=== PATIENT | female | born 1965 | race African-American/Black ===

== ENCOUNTER 2022-11-26 14:04 | Outpatient (CLI) | payer OTHER, SELFPAY ==
--- NOTE | ~2022-11-26 | XR_ITS ---
EXAMINATION: XR thoracic spine 3V DATE: 11/26/2022 14:20 INDICATION: Thoracic back pain TECHNIQUE: AP, lateral and lateral swimmer's views of the thoracic spine were obtained. COMPARISON: None. FINDINGS: Bone alignment is normal. There is no fracture. There is moderate loss of intervertebral di sc space height at multiple levels in the thoracic spine. The vertebral body heights are maintained. Small degenerative osteophytes project from the anterior endplates of multiple vertebral bodies. A du al-lead cardiac pacemaker of the left chest wall ends with leads in expected locations. IMPRESSION: 1. Moderate thoracic spondylosis without acute findings. Reviewed, dictated and finalized at location B.
== END 2022-11-26 14:05 | disposition home or self-care (01) ==
LOC: ANHIMG 14:08
PROVIDERS: PCP Internal Medicine; Visit Provider Internal Medicine
DX: M47.894 Other spondylosis, thoracic region (principal)
CPT/HCPCS: 72072

== ENCOUNTER 2024-07-23 12:52 | Outpatient (CLI) | payer OTHER, SELFPAY ==
--- OUTSIDE RECORDS SUMMARY | 2024-07-23 12:56 | XMS_ITS ---
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 Name Role Phone Vivian Colón Primary Care Provider REASON FOR VISIT 4 week F/U; r/s from 05/22 Social History Sex Assigned At : Social History Observation Description Sex Assigned At Female Encounters Encounter Location Date Provider Diagnosis [address] [address] 05/25/2024 Vivian Colón Plan Of Treatment No Information Progress Notes * Alissa BENSON DDOB:1965 (59 yo F)Acc No.[id number]:05/25/2024 UNLOCKED PROGRESS NOTE Patient: Alissa MARIEE Provider: SOCORRO Cronin :1965 A ge:59 Y S ex:Female Date:05/25/2024 Address:[address] [place], [place] [id number] Subjective: * Chief Complaints: * 1 . 4 week F/U; r/s from 05/22. * Medical History: Objective: * Vitals: Assessment: Plan: * Treatment: * * Electronic signature of Masood Colón on 07/23/2024 at 12:56 PM CDT Sign off status: Pending * Provider: SOCORRO Cronin Date: 0 05/25/2024 Generated for Alexi ng/Faluisg/eTransmitting on: 0 07/23/2024 12:56 PM CDT
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
--- OUTSIDE RECORDS SUMMARY | 2024-07-23 12:57 | XMS_ITS | Data Portability ---
Author Organization [facility] Address [address] [place] [address] Assessment Encounter Date Assessment Date Assessment LastModified by Organization Details LastModified Time 07/09/2024 07/09/2024 RAVINDER Freeman [email or web address] Not available 07/09/2024 12:47:43 Plan of Treatment Reminders Order Date Submit Date Provider Last Modified By Organization Details Last Modified Time Details Appointments ANY 15 2024 11:30A M SHARONDA GILLESPIE PA-C Not available Not available Not available Lab None recorded. Referral audiologi st referral 2024 025 [facility] (Audiology), [address], [address], 07/16/2024 09:18:45 otolaryng ologist referral [address], [address] , [place], [address], 03/14/2024 14:04:53 Procedures None recorded. Surgeries None recorded. Imaging MAMMO, screening , bilateral [address] [facility] (One Call Scheduling), [address] [place], [address], 07/12/2024 12:57:35 Medication Orders lisinopri l 5 mg tablet [address] , [address], [place], [place], [id number], 07/09/2024 12:59:10 diltiazem CD 360 mg capsule,e xtended release 24 hr 2024 025 [facility], [address] [place] [address] , [address], [place], [place], [id number], 07/09/2024 12:59:11 omeprazol e 40 mg capsule,d elayed release 2023 [facility], [address] [facility] , [address], [place], [place], [id number], 01/16/2024 13:21:18 lisinopri l 5 mg tablet 2023 024 [facility], [address] [place] [address] , [address], [place], [place], [id number], 12/07/2023 11:52:26 diltiazem CD 360 mg capsule,e xtended release 24 hr 2023 024 [facility], [address] [place] [address] , [address], [place], [place], [id number], 12/07/2023 11:52:26 Patient TargetsNo targets recorded. Patient Instructions Encounter Date Encounter Id Patient Instructions Last Modified By Organization Details Last Modified Time 12/07/2023 [id number] headache: care instructions [email or web address] Not available 12/07/2023 11:52:14 A healthy lifest yle: care instructions [email or web address] Not available 12/07/2023 11:52:14 learning about h igh blood pressure [email or web address] Not available 12/07/2023 11:52:14 01/16/2024 [id number] gastroesophageal reflux disease (GERD): care instructions [email or web address] Not available 01/16/2024 13:19:31 A healthy lifest yle: care instructions [email or web address] Not available 01/16/2024 13:19:31 02/22/2024 [id number] gastroesophageal reflux disease (GERD): care instructions [email or web address] Not available 02/22/2024 12:01:04 A healthy lifest yle: care instructions [email or web address] Not available 02/22/2024 12:01:04 07/09/2024 [id number] mammogram: about this test [email or web address] Not available 07/09/2024 12:58:01 headache: care instructions Not available 07/09/2024 12:58:01 atrial fibrillat ion: care instructions Not available 07/09/2024 12:58:01 learning about h igh blood pressure [email or web address] Not available 07/09/2024 12:58:01 A healthy lifest yle: care instructions [email or web address] Not available 07/09/2024 12:58:01 Reason for Referral Clinical Research Assistant Referral fo r Pain of ear Referring Physician: Sharonda Gillespie [facility], Encounter Date: 01/16/2024 Academic Vice President Referral for Con ductive hearing loss, bilateral Referring Physician: Sharonda Gillespie [facility], Encounter Date: 07/09/2024 Problems Name Problem SNOMED Code Status Onset Date Resolution Date Notes Provider Name and Address Organization Details Recorded Time Essential hypertensi on 85661880 Active 2023 SHARONDA GILLESPIE PA-C Attn: Accounting ,[address] [place], [address] , [facility] 5 12:51:11 Atrial fibrillati on 26563567 Active 2024 SHARONDA GILLESPIE PA-C Attn: Accounting ,[address] [place], [address] , [facility] 5 12:51:35 Hypertensi ve disorder 10914618 Active Not Available [facility] 2 00:33:03 Morbid obesity 236715738 Active Not Available [facility] 2 00:33:03 Chronic low back pain 056156132 Active Not Available [facility] 2 00:33:03 Deficiency anemias 230986909 Active Not Available [facility] 2 00:33:03 Obesity 990395588 Active Not Available [facility] 2 00:33:02 Uterine leiomyoma 33226225 Active Not Available [facility] 2 00:33:03 Chronic anemia 909249905 Active Not Available [facility] 2 00:33:03 Compulsive behavior 87683898 Active Not Available [facility] 2 00:33:03 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 Procedures Surgical History Date Name Laterality Status Provider Name and Address Organization Details Recorded Time 3 Date of Last Mammogram completed Princess Manriquez [place] 08/30/2022 10:09:36 3 Date of Last Pap Smear completed DELIA [place] - [facility] 05/25/2022 09:53:29 Imaging Results None recorded. Procedure Notes None recorded. Medical Equipment None Reported. Allergies Allergen ID Allergen Name Allergen Category Reaction Reaction Severity Criticality Documentation Date Start Date Code Code System Note Provider Name and Address Organization Details Recorded Time 687781 Augmentin medicatio n diarrhea Not available [facility] 05/25/2022 77662 2 RxNorm DELIA [place], [place] - [place] 3 09:51:14 66882 Keflex medicatio n diarrhea Not available Not available 01/24/2015 32914 7 RxNorm DELIA [place], [place] - [facility] 5 14:36:30 79796 potassium medicatio n anaphylax is Not available Not available 01/24/2015 8588 RxNorm DELIA [place], [place] - [facility] 5 14:36:30 03726 iron medicatio n anaphylax is Not available Not available 01/24/2015 48078 RxNoDELIA [place], [place] - [facility] 5 14:36:30 54252 poppy seed oil food anaphylax is Not available Not available 01/24/2015 68607 99 DELIA [place], [place] - [facility] 5 14:36:30 Medications Name Sig Start Date Stop Date Status Note LastModified by Organization Details LastModified Time amoxicillin 500 mg capsule Take 1 capsule every 12 hours by oral route for 14 days. 07/23 completed Not Available Not Available Not Available clindamycin HCl 300 mg capsule 08/10 completed Not Available Not Available Not Available azithromyci n 250 mg tablet TAKE 2 TABLETS (500 MG) BY ORAL ROUTE ONCE DAILY FOR 1 DAY THEN 1 TABLET (250 MG) BY ORAL ROUTE ONCE DAILY FOR 4 DAYS 04/06 completed Not Available Not Available Not Available ibuprofen 800 mg tablet 06/26 completed Not Available Not Available Not Available clarithromy ramo 500 mg tablet Take 1 tablet every 12 hours by oral route for 14 days. 07/23 completed Not Available Not Available Not Available hydrocodone 5 mg-acetamin ophen 325 mg tablet active Not Available Not Available No t Available lisinopril 20 mg tablet Take 1 tablet every day by oral route as needed for 30 days. 08/10 completed Not Available Not Available Not Available dofetilide 250 mcg capsule active Not Available Not Available Not Available diltiazem CD 360 mg capsule,ext ended release 24 hr Take 1 capsule every day by oral route as directed for 90 days. 2024 active Not Available Not Available Not Avai lable metronidazo le 500 mg tablet Take 1 tablet every 8 hours by oral route for 14 days. 07/23 completed Not Available Not Available Not Available acetaminoph en 300 mg-codeine 30 mg tablet 06/26 completed Not Available Not Available Not Available amlodipine 5 mg tablet TAKE 1 TABLET(S) EVERY DAY BY ORAL ROUTE FOR 30 DAYS. 06/26 completed Not Available Not Available Not Available omeprazole 40 mg capsule,del ayed release Take by oral route for 30 days. active Not Available Not Available No t Available triamcinolo ne acetonide 0.1 % topical cream APPLY A THIN LAYER TO THE AFFECTED AREA(S) BY TOPICAL ROUTE 2 TIMES PER DAY 06/10 completed Not Available Not Available Not Available ketorolac 10 mg tablet Take 1 tablet every 6 hours by oral route for 5 days. 06/13 completed Not Available Not Available Not Available ofloxacin 0.3 % ear drops INSTILL 10 DROPS INTO AFFECTED EAR(S) BY OTIC ROUTE ONCE DAILY 12/06 completed Not Available Not Available Not Available famotidine 20 mg tablet TAKE 1 TABLET BY MOUTH TWICE A DAY 02/21 completed Not Available Not Available Not Available amlodipine 10 mg tablet Take 1 tablet(s) every day by oral route 06/10 completed Not Available Not Available Not Available pantoprazol e 40 mg tablet,teressa yed release 08/17 completed Not Available Not Available Not Available ranitidine 150 mg tablet TAKE 1 TABLET TWICE A DAY BY ORAL ROUTE FOR 30 DAYS. 07/23 completed Not Available Not Available Not Available lisinopril 10 mg tablet Take 1 tablet every day by oral route as directed for 30 days. 11/05 completed Not Available Not Available Not Available omeprazole 20 mg capsule,del ayed release TAKE 1 CAPSULE BY MOUTH DAILY BEFORE A MEAL 09/09 completed Not Available Not Available Not Available ranitidine 150 mg capsule Take 1 capsule twice a day by oral route for 30 days. 07/23 completed Not Available Not Available Not Available lisinopril 5 mg tablet Take 1 tablet every day by oral route as directed for 90 days. 2024 active Not Available Not Available Not Avai lable digoxin 125 mcg (0.125 mg) tablet Take 1 tablet every day by oral route as directed for 90 days. active Not Available Not Available No t Available furosemide 20 mg tablet TAKE 1 TABLET BY MOUTH DAILY active Not Available Not Available No t Available ibuprofen 600 mg tablet 08/10 completed Not Available Not Available Not Available levofloxaci n 500 mg tablet 07/23 completed Not Available Not Available Not Available Vitamin D2 1,250 mcg (50,000 unit) capsule Take 1 capsule every week by oral route as directed for 30 days. 06/26 completed Not Available Not Available Not Available lisinopril 40 mg tablet TAKE 1 TABLET(S) EVERY DAY BY ORAL ROUTE FOR 30 DAYS. 06/10 completed Not Available Not Available Not Available loratadine 10 mg tablet Take 1 tablet every day by oral route for 30 days. 2024 active Not Available Not Available Not Avai lable Ventolin HFA 90 mcg/actuati on aerosol inhaler Inhale 1 puff every 4 hours by inhalatio n route as needed for 90 days. 2024 active Not Available Not Available Not Avai lable aripiprazol e 20 mg tablet active Not Available Not Available Not Available Vitamin D3 25 mcg (1,000 unit) tablet Take 1 tablet every day by oral route as directed for 30 days. 06/13 completed Not Available Not Available Not Available Premarin 0.625 mg/gram vaginal cream 06/13 completed Not Available Not Available Not Available lactulose 10 gram/15 mL oral solution active Not Available Not Available Not Available chlorhexidi ne gluconate 0.12 % mouthwash active Not Available Not Available No t Available calcium 600 mg (as carbonate)- vitamin D3 10 mcg (400 unit) tablet TAKE 1 TABLET BY MOUTH TWICE A DAY 2024 active Not Available Not Available Not Avai lable FeroSul 325 mg (65 mg iron) tablet active Not Available Not Available Not Available lutein 10 mg tablet Take 1 tablet every day by oral route in the morning. active Not Available Not Available No t Available lactulose 10 gram/15 mL (15 mL) oral solution Take 15 mL every day by oral route as directed for 10 days. 06/13 completed Not Available Not Available Not Available Eliquis 5 mg tablet active Not Available Not Available No t Available Vitals Date Recorded Body height Body mass index (BMI) Body weight Oxygen saturation Oxygen saturation in Arterial blood by Pulse oximetry Heart rate Systolic blood pressure Diastolic blood pressure Provider Name and Address Organization Details Last Updated DateTime 4 149.86 cm 41.8 kg/m2 34747.3 4 g 96 % 96 % 78 /min 120 mm[Hg] 74 mm[Hg] Yusra Melgoza [place] - [facility] 4 11:26:52 Date Recorded Body height Body mass index (BMI) Body weight Oxygen saturation Oxygen saturation in Arterial blood by Pulse oximetry Heart rate Systolic blood pressure Diastolic blood pressure Provider Name and Address Organization Details Last Updated DateTime 4 149.86 cm 42 kg/m2 07403.2 1 g 97 % 97 % 77 /min 120 mm[Hg] 78 mm[Hg] Luz Noonan MA [facility] 4 11:57:56 Date Recorded Body height Body mass index (BMI) Body weight Body temperature Heart rate Systolic blood pressure Diastolic blood pressure Provider Name and Address Organization Details Last Updated DateTime 4 149.86 cm 43.4 kg/m2 34203.3 6 g 97.3 [degF] 78 /min 166 mm[Hg] 90 mm[Hg] Nneka Brown MA [facility] 4 12:25:07 Date Recorded Body height Body mass index (BMI) Body weight Oxygen saturation Oxygen saturation in Arterial blood by Pulse oximetry Heart rate Systolic blood pressure Diastolic blood pressure Provider Name and Address Organization Details Last Updated DateTime 4 149.86 cm 43.4 kg/m2 52913.3 6 g 99 % 99 % 77 /min 130 mm[Hg] 80 mm[Hg] Georgette Galvan MA [facility] 4 11:46:17 Date Recorded Body height Body mass index (BMI) Body weight Oxygen saturation Oxygen saturation in Arterial blood by Pulse oximetry Heart rate Systolic blood pressure Diastolic blood pressure Provider Name and Address Organization Details Last Updated DateTime 5 149.86 cm 44 kg/m2 58940.1 4 g 97 % 97 % 61 /min 124 mm[Hg] 86 mm[Hg] Georgette Galvan MA [facility] 5 12:39:43 Social History Question Answer Notes LastModified by Organizat ion Details LastModified Time Tobacco Smoking Status Never Smoker Francia Randolph MA [facility] 07/02/2019 11:02:47 What Was The Date Of Your Most Recent Tobacco Screening? 01/16/2024 Information not available 01/16/2024 On What Date Was Tobacco Cessation Counseling Provided? 01/16/2024 Information not available 01/16/2024 Sex: Unknown Functional Status None recorded. Mental Status None recorded. Family History Relationship Description Onset Age of this Age Resolved Age Notes LastModified by Organization Details LastModified Time Mother Hypertensive disorder [email or web address] Not available 2014 14:38:49 Mother Fibroid myocarditis [email or web address] Not available 01/06 14:38:49 Brother Hypertensive disorder [email or web address] Not available 2014 14:38:49 Brother Asthma [email or web address] Not available 01/24/2015 14:38:49 Medical History Condition Response Coronary Artery Disease N Other N High Blood Pressure Y Atrial Fibrillation N Kidney or Bladder Problems N Thyroid Problems N GI Problems N Depression N COPD N Blood Clots N Skin Problems N Anemia Y Heart Attack ([place]) N Anxiety Disorder Y Diabetes N Muscle, Joint, or Bone Problems N Seizures/Epilepsy N Acid Reflux (GERD) N Cancer N Stroke N Asthma Y Allergies Y High Cholesterol N Hepatitis N Liver Disease N Headaches N Heart Failure N Osteoporosis N Gynecological History Statement/Question Response Date of Last Mammogram 06/14/2022 Flow [place] Date of LMP Menses Monthly N Date of Last Pap Smear 05/25/2022 Age at Menarche 10 Current Control Method None LMP Unknown Obstetrics History GPAL:G 0 P 0 0 0 0 Type Value Multiple Births 0 Full Term 0 Induced 0 Spontaneous 0 Premature 0 Living 0 Ectopics 0 Total 0 Immunizations Vaccine Type Date Status Note Provider Nam e and Address Organization Details Recorded Time SARS-COV-2 (COVID-19) vaccine, UNSPECIFIED 2 completed SHARONDA GILLESPIE PA-C Attn: Accounting,[address] [place], [place], [address] [place] [address], [facility] 07/09/2024 12:54:30 SARS-COV-2 (COVID-19) vaccine, UNSPECIFIED 2 completed SHARONDA GILLESPIE PA-C Attn: Accounting,[address] [place], [address], [facility] - [facility] 07/09/2024 12:54:30 SARS-COV-2 (COVID-19) vaccine, UNSPECIFIED 2 completed SHARONDA GILLESPIE PA-C Attn: Accounting,[address] [place], [place], [address] [place] [address], [facility] - [facility] 07/09/2024 12:54:30 zoster recombinant 4 completed SHARONDA GILLESPIE PA-C Attn: Accounting,[address] [facility], [place], [place], [address] [place] [address], [place] - [facility] 07/09/2024 12:54:30 zoster recombinant 4 completed SHARONDA GILLESPIE PA-C Attn: Accounting,[address] [facility], [place], [place], [address] [place] [address], [place] 07/09/2024 12:54:30 Pneumococcal conjugate PCV20, polysaccharide [id number] conjugate, adjuvant, PF 5 completed SHARONDA GILLESPIE PA-C Attn: Accounting,[address] [facility], [place], [place], [address] [place] [address], [place] [facility] 07/09/2024 12:54:30 COVID-19, mRNA, LNP-S, PF, 30 mcg/0.3 mL dose, nain-sucrose 2 completed SHARONDA GILLESPIE PA-C Attn: Accounting,[address] [facility], [place], [place], [address] [place] [address], [place] [facility] 07/09/2024 12:54:30 COVID-19, mRNA, LNP-S, PF, 30 mcg/0.3 mL dose, nain-sucrose 2 completed SHARONDA GILLESPIE PA-C Attn: Accounting,[address] [facility], [place], [place], [address] [place] [address], [place] [facility] 07/09/2024 12:54:30 COVID-19, mRNA, LNP-S, PF, 30 mcg/0.3 mL dose, nain-sucrose 2 completed SHARONDA GILLESPIE PA-C Attn: Accounting,[address] [facility], [place], [place], [address] [place] [address], [place] [facility] 07/09/2024 12:54:30 COVID-19, mRNA, LNP-S, bivalent, PF, 30 mcg/0.3 mL dose 3 completed SHARONDA GILLESPIE PA-C Attn: Accounting,[address] [facility], [place], [place], [address] [place] [address], [place] [facility] 07/09/2024 12:54:30 COVID-19, mRNA, LNP-S, PF, nain-sucrose, 30 mcg/0.3 mL 4 completed SHARONDA GILLESPIE PA-C Attn: Accounting,[address] [place], [address], [facility] 07/09/2024 12:54:30 COVID-19, mRNA, LNP-S, PF, nain-sucrose, 30 mcg/0.3 mL 5 completed SHARONDA GILLESPIE PA-C Attn: Accounting,[address] [place], [address], [facility] 07/09/2024 12:54:30 Tdap 2 completed Jorge Fu MD Attn: Accounting,[address] [place], [address], [facility] 11/16/2021 12:01:31 Past Encounters Encounter ID Performer Location Encounter Start Date Encounter Closed Date Diagnosis/Indication Diagnosis SNOMED-CT Code Diagnosis ICD10 Code Diagnosis Note [id number] Jorge Fu MD [facility] (Adult Med) [address] [place] [address] 0 01/24/2015 14:11:03 01/27/2015 13:57:32 Hypertensive disorder 89065337 I10 Morbid obesity 807348064 E66.01 Chronic low back pain 27 8789070 M54.5 Adult heal th examination 763965541 Z00.01 Deficiency anemias 15655 3007 D53.9 [id number] Jorge Fu MD [facility] (Adult Med) [address] [place] [address] 0 03/18/2015 13:54:26 03/18/2015 14:44:24 Hypertensive disorder 25303982 I10 Obesity 315308188 E66.9 Uterine leiomyoma 541569 05 D25.9 Chronic anemia 615237747 D64.9 Compulsive behavior 1247 9006 R46.81 Obsessive compulsive personality disorder 2506256 F60.5 Generalize d anxiety disorder 81641971 F41.1 Screening mammography 24 491327 Z12.31 [id number] MD [facility] (Adult Med) [address] [place] [id number] 0 10/29/2015 10:21:22 10/29/2015 12:17:37 Morbid obesity 988608333 E66.01 Obsessive compulsive personality disorder 0068911 F60.5 Screening mammography 24 582512 Z12.31 Uterine leiomyoma 034244 05 D25.9 Acid reflux 371257932 K2 1.9 Perimenopausal state 946 4874062 51704 Z78.0 [id number] MD [facility] (Adult Med) [address] [place] [id number] 0 11/28/2015 10:08:30 11/28/2015 17:45:56 Acid reflux 905717243 K21.9 Morbid obesity 393477218 E66.01 Hypertensive disorder 38 260909 I10 Uterine leiomyoma 616294 05 D25.9 [id number] Jorge Fu MD [facility] (Adult Med) [address] [place] [id number] 0 02/23/2016 10:37:28 02/23/2016 11:36:44 Hypertensive disorder 02316558 I10 Morbid obesity 149979438 E66.01 [id number] Jorge Fu MD [facility] (Adult Med) [address] [place] [id number] 0 07/23/2016 10:12:02 07/23/2016 11:14:04 Essential hypertension 43229745 I10 Her BP is on the low side, will adjust down her BP medication s. Low salt diet. BP monitor. Morbid obesity 278607461 E66.01 Diet, exercise and lose weight, she agreed. Screening for malignant neoplasm of colon 948087551 Z12.11 patient declines. [id number] Jorge Fu MD [facility] (Adult Med) [address] [place] [address] 0 01/18/2017 10:23:49 01/18/2017 11:11:11 Essential hypertension 81066418 I10 Her BP is on the low side, will adjust down her BP medication s. Low salt diet. BP monitor. Bp seems going up at home , today is 120/90-86 mmHg. Will increase the dose of lisinopril and monitor in the future. Administra tion of influenza vaccine 86709078 Z23 Patient refuses. Screening for malignant neoplasm of cervix 114670901 Z12.4 Patient refuses. Screening mammography 24 792131 Z12.31 She is on the annual list of reminding. History of asthma 837996 007 Z87.09 Ventolin HFA 90 mcg 1-2 puffs every 4-6 hours as needed for the rescue only. May refill 6 times, may substitute . Vitamin D deficiency 347 88888 E55.9 Also shall take calcium as well. [id number] MD [facility] (Adult Med) [address] [place] [address] 0 08/10/2017 10:10:43 08/10/2017 12:01:09 Essential hypertension 10688157 I10 Her BP is on the low side, will adjust down her BP medication s. Low salt diet. BP monitor. Bp seems going up at home , today is 120/90-86 mmHg. Will increase the dose of lisinopril and monitor in the future.Jose Raul l increase amlodipine from 5 mg to 10 mg/day for the safe BP controll. Screening mammography 24 411094 Z12.31 She is on the annual list of reminding. Screening for malignant neoplasm of colon 624878802 Z12.11 patient declines. [id number] [facility] [address] [place] [address] 0 11/10/2017 10:11:26 11/10/2017 11:20:54 Screening mammography 11038396 Z12.31 She is on the annual list of reminding. Screening for malignant neoplasm of cervix 234671869 Z12.4 Patient refuses. Essential hypertension 13907107 I10 Her BP is on the low side, will adjust down her BP medication s. Low salt diet. BP monitor. Bp seems going up at home , today is 120/90-86 mmHg. Will increase the dose of lisinopril and monitor in the future.Jose Raul l increase amlodipine from 5 mg to 10 mg/day for the safe BP controll. BP is well controlled . Will continue kel current regimen. Acid reflux 673607496 K2 1.9 Avoid reasy and spicy food. Do not lie flat after full meal, she understood and agreed to try. [id number] MD [facility] (Adult Med) [address] [place], [place] [id number] 0 06/26/2018 10:12:51 06/26/2018 11:59:43 Acanthosis nigricans 705473787 L83 Discussed with patient.Sh nohemy agreed to try cream first. Hypertensive disorder 38 446345 I10 Well controlled , low salt diet. Acid reflux 022962195 K2 1.9 Avoid reasy and spicy food. Do not lie flat after full meal, she understood and agreed to try. Obesity 695610928 E66.9 Diet, exercise and lose weight. History of asthma 662027 007 Z87.09 Ventolin HFA 90 mcg 1-2 puffs every 4-6 hours as needed for the rescue only. May refill 6 times, may substitute . Vitamin D deficiency 347 54045 E55.9 Also shall take calcium as well. [id number] Jorge Fu MD [facility] (Adult Med) [address] [place] [address] 0 09/25/2018 10:14:38 09/29/2018 15:02:38 Hypertensive disorder 27145386 I10 Well controlled , low salt diet. Acid reflux 140560559 K2 1.9 Avoid greasy and spicy food. Do not lie flat after full meal, she understood and agreed to try. Vitamin D deficiency [id number] E55.9 Also shall take calcium as well. History of asthma [id number] Z87.09 Ventolin HFA 90 mcg 1-2 puffs every 4-6 hours as needed for the rescue only. May refill 6 times, may substitute . [id number] Jorge Fu MD [facility] (Adult Med) [address] [place] [address] 0 01/16/2019 10:46:48 01/16/2019 11:10:16 Morbid obesity [id number] E66.01 Diet, exercise and lose weight, she agreed. Acid reflux [id number] K2 1.9 Avoid greasy and spicy food. Do not lie flat after full meal, she understood and agreed to try. Hypertensive disorder [id number] I10 Well controlled , low salt diet. Vitamin D deficiency 347 19668 E55.9 Also shall take calcium as well. History of asthma 040420 007 Z87.09 Ventolin HFA 90 mcg 1-2 puffs every 4-6 hours as needed for the rescue only. 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 Name Role Phone Lindy Taylor MD Unavailable JORGE FU MD Unavailable [phone] JORGE FU MD Unavailable [phone] PROBLEMS Condition Status Date Provider Notes Nonischemic cardiomyopathy - cath 05/2020 EF 35%, nml cors, EF 60% TTE 08/2020 & 07/2023 active Lindy Taylor MD Atrial Fibrillation with RVR/SSS S/P dc PCM - Biotronik (MRI safe) active Gurmeet Bustillos HYPERTENSION active Lindy Taylor MD Asthma active Lindy Taylor MD Anemia active Lindy Taylor MD Obesity active Lindy Taylor MD Bipolar disorder active Lindy Taylor MD Cardiology examination active Lindy be MD Dual chamb PCM - Biotronik (MRI safe) completed - Gurmeet Tressa ENCOUNTERS Date Type Provider Location Encounter Diag nosis - In-person encounter Office Visit Lindy Taylor MD [facility] Cardiology examination - In-person encounter Office Visit Lindy Taylor MD [facility] Nonischemic cardiomyopathy - cath 05/2020 EF 35%, nml cors, EF 60% TTE 08/2020 & 07/2023 - In-person encounter Office Visit Lindy Taylor MD [facility] - In-person encounter Office Visit Lindy Taylor MD [facility] - In-person encounter Office Visit Corby Hazel MD [facility] - In-person encounter Office Visit Lindy Taylor MD [facility] - In-person encounter Office Visit Lindy Taylor MD [facility] - In-person encounter Office Visit Lindy Taylor MD [facility] - In-person encounter Office Visit Lindy Taylor MD [facility] - In-person encounter Office Visit Lindy Taylor MD [facility] Bipolar disorder - In-person encounter Office Visit Lindy Taylor MD [facility] Dual chamb PCM - Biotronik (MRI safe)Nonischemic cardiomyopathy - cath 05/2020 EF 35%, nml cors, EF 60% TTE 08/2020 & trial Fibrillation with RVR/SSS S/P dc PCM - Biotronik (MRI safe)HYPERTENSIONAsthm aAnemiaObesity VITAL SIGNS Date Observation Value Provider Body Mass Index (Ratio) 42.41 kg/m2 Miranda Taylor MD blood pressure, diastolic 96 mm[Hg] An may Charles blood pressure, systolic 119 mm[Hg] Jana Charles oxygen saturation, oximetry 97 % Rosanna Charles pulse rate 86 /min Rosanna Charles respiratory rate E&M 12 /min Rosanna Charles weight E&M 210 [lb_av] Rosanna Charles height E&M 59 [in_i] Rosanna Charles blood pressure, cuff size regular An may Charles Body Mass Index (Ratio) 42.33 kg/m2 Miranda Taylor MD blood pressure, cuff size large Ramiro kim Caruso blood pressure, diastolic 86 mm[Hg] Ramiro kim Caruso blood pressure, systolic 118 mm[Hg] [place] Caruso oxygen saturation, oximetry 98 % Sameera Caruso respiratory rate E&M 12 /min Sameera Caruso pulse rate 64 /min Sameera Caruso weight E&M 209.6 [lb_av] Sameera Caruso height E&M 59 [in_i] Sameera Caruso Body Mass Index (Ratio) 41.00 kg/m2 Miranda Taylor MD blood pressure, diastolic 95 mm[Hg] Li nkLogic blood pressure, systolic 133 mm[Hg] Clary kLogic blood pressure, cuff size regular Ja rret blood pressure, diastolic 95 mm[Hg] Ja rret blood pressure, systolic 133 mm[Hg] Jar ret pulse rate 70 /min Pato y oxygen saturation, oximetry 100 % Pato respiratory rate E&M 12 /min Pato weight E&M 203 [lb_av] Pato y height E&M 59 [in_i] Pato gaston Body Mass Index (Ratio) 41.80 kg/m2 Norma Yu weight E&M 207 [lb_av] Erendira Lugo height E&M 59 [in_i] Erendira Lugo blood pressure, diastolic 100 mm[Hg] Sh erich Lugo blood pressure, systolic 148 mm[Hg] She jazlyn Lugo oxygen saturation, oximetry 98 % Erendira Lugo pulse rate 66 /min Erendira Lugo respiratory rate E&M 18 /min Erendira Lugo blood pressure, cuff size regular erich Lugo Body Mass Index (Ratio) 42.41 kg/m2 Ihsan Hazel MD blood pressure, diastolic -1 mm[Hg] Mallorie nkLoglisa blood pressure, systolic 149 mm[Hg] Clary Clara blood pressure, diastolic 100 mm[Hg] St derek Villalta blood pressure, systolic 149 mm[Hg] Kirstie Villalta oxygen saturation, oximetry 93 % Alma Villalta pulse rate 65 /min Alma Villalta weight E&M 210 [lb_av] Alma Villalta respiratory rate E&M 16 /min Alma wang height E&M 59 [in_i] Alma Villalta Body Mass Index (Ratio) 45.24 kg/m2 Miranda Taylor MD blood pressure, cuff size large Or cat Rose blood pressure, diastolic 72 mm[Hg] Mi cat Enterprise blood pressure, systolic 148 mm[Hg] Timmy karie Enterprise oxygen saturation, oximetry 96 % Lea Rose respiratory rate E&M 16 /min Araceli slater Enterprise pulse rate 89 /min Lea miller weight E&M 224 [lb_av] Lea miller height E&M 59 [in_i] Lea miller Body Mass Index (Ratio) 47.46 kg/m2 Miranda Taylor MD blood pressure, diastolic 90 mm[Hg] Li Log blood pressure, systolic 140 mm[Hg] Clary og blood pressure, cuff size large Tr mya Cole blood pressure, diastolic 90 mm[Hg] Tr mya Cole blood pressure, systolic 140 mm[Hg] Try raulheri Cole oxygen saturation, oximetry 99 % Maciel Cole respiratory rate E&M 18 /min Maciel Cole pulse rate 80 /min Maciel Cole weight E&M 235 [lb_av] Maciel Cole height E&M 59 [in_i] Maciel Cole Body Mass Index (Ratio) 47.26 kg/m2 Miranda Taylor MD blood pressure, diastolic 70 mm[Hg] Mallorie Log blood pressure, systolic 112 mm[Hg] Clary og blood pressure, cuff size regular Cy yun Cuevas blood pressure, diastolic 70 mm[Hg] Cy yun Cuevas blood pressure, systolic 112 mm[Hg] Vivian Cuevas pulse rate 66 /min Lynsey abarca respiratory rate E&M 16 /min Lynsey Cuevas oxygen saturation, oximetry 98 % Lynsey Cuevas weight E&M 234 [lb_av] Lynsey abarca height E&M 59 [in_i] Lynsey Coronado l Body Mass Index (Ratio) 48.63 kg/m2 Miranda Taylor MD blood pressure, diastolic 60 mm[Hg] Delia Berger blood pressure, systolic 108 mm[Hg] Rhonda Berger oxygen saturation, oximetry 98 % Sushil Berger respiratory rate E&M 16 /min Angela Berger pulse rate 75 /min Sushil still weight E&M 240.8 [lb_av] Sushil wilder height E&M 59 [in_i] Sushil still Body Mass Index (Ratio) 49.28 kg/m2 Wesly juan c Galicia blood pressure, resting Yes Lucina jean Mason blood pressure, cuff size regular Cy yun Mason blood pressure, diastolic 80 mm[Hg] Cy donaldjean Mason blood pressure, systolic 134 mm[Hg] Vivian dawood Cuevas pulse rate 90 /min Lynsey abarca oxygen saturation, oximetry 97 % Lynsey Cuevas respiratory rate E&M 16 /min Lynsey Cuevas height E&M 59 [in_i] Lynsey Jairobel l weight E&M 244 [lb_av] Lynsey Jairobel l ALLERGIES Allergy Name Onset Date Reaction Criticality Status POPPEY SEED Low Criticality active KEFLEX Low Criticality active AUGMENTIN Low Criticality active LEMON Low Criticality active RESULTS Date Observation Value Provider Reference Range Interpretation Location 6 triglyceride, serum, random 118 mg/dL [facility] 0-149 1 magnesium, serum 2.0 mg/dL [facility] 1.6-2.3 1 alanine aminotransferase (SGPT), serum 25 1/L [facility] 0-32 1 aspartate aminotransferase (SGOT), serum 23 1/L [facility] 0-40 1 alkaline phosphatase, serum 96 1/L [facility] 39-117 1 bilirubin, serum, total 0.4 mg/dL [facility] 0.0-1.2 1 albumin/globulin ratio, serum 1.1 [facility] 1.2-2.2 Low 1 globulin, serum 3.7 [facility] 1.5-4.5 1 albumin, serum 4.2 g/dL [facility] 3.8-4.9 1 protein, total, serum 7.9 g/dL [facility] 6.0-8.5 1 calcium, serum 10.0 mg/dL [facility] 8.7-10.2 1 carbon dioxide, venous blood 23 mmol/L [facility] 20-29 1 chloride, serum 101 mmol/L [facility] 96-106 1 potassium, serum 4.2 mmol/L [facility] 3.5-5.2 1 sodium, serum 140 mmol/L [facility] 299-036 3814/04/0 1 urea nitrogen/creatinine ratio, serum 12 [facility] 9-23 1 eGFR if 96 mL/min/{1 .73_m2} [facility] >59 1 eGFR if not 83 mL/min/{1 .73_m2} [facility] >59 1 creatinine, serum 0.81 mg/dL [facility] 0.57-1.00 1 urea nitrogen, blood 10 mg/dL [facility] 6-24 1 blood glucose, random 80 mg/dL [facility] 65-99 HISTORY OF MEDICATION USE Medication Status Instructions Dates Provider Indications Com ments digoxin 125 mcg (0.125 mg) tablet active Take 1 tablet by mouth once a day Elisa Rodríguez digoxin 125 mcg (0.125 mg) tablet completed TAKE 1 TABLET BY MOUTH DAILY - Elisa Rodríguez lutein unspecified unspecified active Pato digoxin 125 mcg (0.125 mg) tablet completed Take 1 tablet by mouth once a day TAKE 1 TABLET BY MOUTH DAILY - Pato FeroSul 325 mg (65 mg iron) tablet active Take 1 tablet by mouth once a day Elisa Rodríguez calcium carbonate-vitami n D3 600 mg-10 mcg (400 unit) tablet active Bhumika Ventimiglia [employer] famotidine 20 mg tablet active Bhumika Ventimiglia [employer] FeroSul 325 mg (65 mg iron) tablet completed TAKE 1 TABLET BY MOUTH DAILY - Elisa Rodríguez Eliquis 5 mg tablet active TAKE 1 TABLET BY MOUTH TWICE A DAY Roxy Borden lisinopril 5 mg tablet active TAKE 1 TABLET BY MOUTH DAILY Lindy Taylor MD furosemide 20 mg tablet active TAKE 1 TABLET BY MOUTH DAILY Elisa Rodríguez digoxin 125 mcg (0.125 mg) tablet completed TAKE 1 TABLET BY MOUTH DAILY - Kg Spencer dofetilide 250 mcg capsule active Take 1 capsule by mouth twice a day Elisa Rodríguez albuterol sulfate 90 mcg/actuation HFA aerosol inhaler active Inhale 1 puff using inhaler every six hours as needed Lindy Taylor MD hydrocortisone 0.5% cream completed APPLY TO AFFECTED AREA(S) DAILY DIRECTED - hydrocortisone 0.5% cream completed pump to skin - Lindy Taylor MD Cardizebarbie CD 360 mg capsule,extended release 24hr active Take 1 tablet by mouth once a day Lynsey Cuevas dofetilide 250 mcg capsule completed Take 1 tablet by mouth twice a day - Lynsey Cuevas pantoprazole [address] for susp in packet completed once daily - Bhumikaadin Syedmiglia [employer] Abilify 20 mg tablet active tablet by mouth once a day Lynsey Cuevas Vitamin D3 25 mcg (1,000 unit) capsule completed capsule by mouth once a day - Bhumika Neelyglcarin [employer] digoxin 125 mcg (0.125 mg) tablet completed tablet by mouth once a day - Lynsey Cuevas lisinopril 5 mg tablet completed tablet by mouth once a day - Lynsey Cuevas ferrous sulfate 325 mg (65 mg iron) tablet completed tablet by mouth once a day - Lynsey Cuevas furosemide 20 mg tablet completed Take tablet by mouth once a day - Lynsey Cuevas Eliquis 5 mg tablet completed 1 tablet by mouth twice a day - Alyson Lively Atrial Fibrillation with RVR/SSS S/P dc PCM - Biotronik (MRI safe) SOCIAL HISTORY Date Observation Value Provider smoking status Never smoker Lindy be MD smoking status Never smoker Lindy be MD smoking status Never smoker Lindy be MD social history reviewed E&M revi ewed - no changes required Lindy Taylor MD social history E&M S moking History: Adryan swift has never smoked. Lindy Taylor MD social history reviewed E&M revi ewed - no changes required Lindy Taylor MD smoking status Never smoker Erendira Lugo smoking status Never smoker Alma Villalta smoking status Never smoker Lindy be MD social history reviewed E&M revi ewed - no changes required Lindy Taylor MD social history E&M S moking History: P atramon has never smoked. Lindy Taylor MD social history E&M S moking History: P atramon has never smoked. Lindy Taylor MD social history reviewed E&M revi ewed - no changes required Lindy Taylor MD smoking status Never smoker Maciel barr smoking status Never smoker Lindy be MD social history reviewed E&M revi ewed - no changes required Lindy Taylor MD smoking status Never smoker Lindy be MD social history reviewed E&M revi ewed - no changes required Lindy Taylor MD number of grandchildren Lindy Galicia social history E&M S moking History: Adryan swift has never smoked. Marco A Galicia social history reviewed E&M revi ewed - no changes required Marco A Galicia smoking status Never smoker Lynsey burrell FAMILY HISTORY Family Member Condition Full Brother Family History of Hy pertension: Maternal Grandmother Family History of H ypertension: Mother Family History of Hy pertension: INSURANCE PROVIDERS Payer name Policy type / Coverage type [place] (2) Medicaid [id number] ADVANCE DIRECTIVES Name Date DISCUSSED - NO DECISION MADE TREATMENT PLAN Date Name Performer [id number],C,W eight loss advised Lindy Taylor MD [id number],C, B P typically normal at home around 130/80. Today it is 133/95. No medication changes today. Advised routine home monitoring of the blood pressure. Lindy Taylor MD [id number],C, C ontinues on Eliquis, digoxin, and dofetilide. 0% AF burden on recent device check. Last AF in December 2021. Lindy Taylor MD [id number],C, C ompensated. EF 60% per last echo 02/2021. Will repeat her echo at her f/u visit in 6 months. Lindy Taylor MD [id number],C, C ontinues on Eliquis, digoxin, and dofetilide. 0% AF burden on recent device check. Last AF in December. Lindy Taylor MD [id number],C,Weight loss a dvisedf Bhumikaadin Syedmiglia [facility] [id number],C,B P typically normal at home around 130/80. Today it is 149/100. No medication changes today. ADvised routine home monitoring of the blood pressure. Bhumika Yahairamiglia [facility] [id number],S, E F 60% per last echo 02/2021 Bhumika Ventimiglia [facility] [id number],C,P ulse 65 AT/AF Edison: 0.0% % Pacing: RA - 59.0% RV - 2.0% Continues on Eliquis, digoxin, and dofetilide [place] Eloiseia [facility] [id number],S, Erendira moreno [place] [id number],S,stable Erendira Sb WHITE [id number],B,EF 60% per la st echo 02/2021 Erendira Sb WHITE [id number],S,E KG today shows NSR rate 65 . H er updated medication list for this problem includes: Dofetilide 250 Mcg Capsule (Dofetilide) ..... Take 1 capsule by mouth twice a day Digoxin 125 Mcg (0.125 Mg) Tablet (Digoxin) ..... Take 1 tablet by mouth daily E liquis for anticoagulation. Erendira Basurto NP [id number],B,l ost 11 pounds since last visit. Encouraged weight loss. Erendira Sb WHITE [id number],S,P atient reports she was seen by her PCP last week and her BP was normal. H er updated medication list for this problem includes: Furosemide 20 Mg Tablet (Furosemide) ..... Take 1 tablet by mouth daily Lisinopril 5 Mg Tablet (Lisinopril) ..... Take 1 tablet by mouth daily Cardizem Cd 360 Mg Capsule,extended Release 24hr (Diltiazem hcl) ..... Take 1 tablet by mouth once a day Erendira Basurto CHRISTOPHER [id number],S, R esolved. Clinically euvolemic. EF 60% on most recent echo. . Lindy Taylor MD [id number],S, W eight loss advised. Lindy Taylor MD [id number],S, I n sinus rhythm. QTC 430. Continues on Dofetilide, Digoxin, and Cardizem. On anticoagulation with Eliquis. Atrial paced at 35%. 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 Continues to apply steroid cream for alleviation of itching and discomfort. Lindy Taylor MD [id number],S, B P resaonably elevated. Advised routine BP monitoring, dietary sodium restriction. Lindy Taylor MD [id number],S, Lindy morejon MD [id number],C,Weight loss a dvised. Lindy Taylor MD [id number],C,P atient complains of intermittent wheezing. Will prescribe albuterol inhaler. Lindy Taylor MD [id number],C,B P control is satisfactory. Lindy Taylor MD [id number],C,I n sinus rhythm. QTC 430. Continues on Dofetilide, Digoxin, and Cardizem. On anticoagulation with Eliquis. Atrial paced at 35%. 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 Continues to apply steroid cream for alleviation of itching and discomfort. Lindy Taylor MD [id number],C,C Linically euvolemic. Will check echo at next visit. Lindy Taylor MD Cardiology: C ompensated. EF 60% by echocardiogram today. Lindy Taylor MD Cardiology: C ontinues on Eliquis, digoxin, and dofetilide. 0% AF burden on recent device check. Last AF in December 2021. Q TC 418 N ormal device functioning 3 1% RA paced Lindy Taylor MD Cardiology: B P today: 119/96 P rior BP: 118/86 (07/28/2023) Her updated medication list for this problem includes: Lisinopril 5 Mg Tablet (Lisinopril) ..... Take 1 tablet by mouth daily Furosemide 20 Mg Tablet (Furosemide) ..... Take 1 tablet by mouth daily Cardizem Cd 360 Mg Capsule,extended Release 24hr (Diltiazem hcl) ..... Take 1 tablet by mouth once a day Lindy Taylor MD Cardiology: W eight loss advised Lindy Taylor MD Cardiology: C ontinues on Eliquis, digoxin, and dofetilide. 0% AF burden on recent device check. Last AF in December 2021. Lindy Taylor MD Cardiology: B lood pressure is satisfactory. Lindy Taylor MD Cardiology: C ompensated. EF 60% by echocardiogram today. Lindy Taylor MD Cardiology:Weight lo ss advised Lindy Taylor MD Cardiology: B P typically normal at home around 130/80. Today it is 133/95. No medication changes today. Advised routine home monitoring of the blood pressure. Lindy Taylor MD Cardiology: C ontinues on Eliquis, digoxin, and dofetilide. 0% AF burden on recent device check. Last AF in December 2021. Lindy Taylor MD Cardiology: C ompensated. EF 60% per last echo 02/2021. Will repeat her echo at her f/u visit in 6 months. Lindy Taylor MD Cardiology: C ontinues on Eliquis, digoxin, and dofetilide. 0% AF burden on recent device check. Last AF in December. Lindy Taylor MD Cardiology:Weight loss advisedf Bhumikaadin Fraga [facility] Cardiology:BP typica lly normal at home around 130/80. Today it is 149/100. No medication changes today. ADvised routine home monitoring of the blood pressure. [place] Chincarin [facility] Cardiology: E F 60% per last echo 02/2021 [place] Flakito [facility] Cardiology:Pulse 65 AT/AF Edison: 0.0% % Pacing: RA - 59.0% RV - 2.0% Continues on Eliquis, digoxin, and [facility]fetilide [facility] Cardiology Erendira Basurto NP Cardiology:stable Erendira irizarry NP Cardiology:EF 60% per last echo 02/2021 Erendira Basurto NP Cardiology:EKG today shows NSR rate 65 . H er updated medication list for this problem includes: Dofetilide 250 Mcg Capsule (Dofetilide) ..... Take 1 capsule by mouth twice a day Digoxin 125 Mcg (0.125 Mg) Tablet (Digoxin) ..... Take 1 tablet by mouth daily E liquis for anticoagulation. Erendira Basurto NP Cardiology:lost 11 p ounds since last visit. Encouraged weight loss. Erendira Basurto NP Cardiology:Patient r eports she was seen by her PCP last week and her BP was normal. H er updated medication list for this problem includes: Furosemide 20 Mg Tablet (Furosemide) ..... Take 1 tablet by mouth daily Lisinopril 5 Mg Tablet (Lisinopril) ..... Take 1 tablet by mouth daily Cardizem Cd 360 Mg Capsule,extended Release 24hr (Diltiazem hcl) ..... Take 1 tablet by mouth once a day Erendira Basurto NP Cardiology - needs p stacy : R esolved. Clinically euvolemic. EF 60% on most recent echo. . Lindy Taylor MD Cardiology - needs p stacy : W eight loss advised. Lindy Taylor MD Cardiology - needs p stacy : I n sinus rhythm. QTC 430. Continues on Dofetilide, Digoxin, and Cardizem. On anticoagulation with Eliquis. Atrial paced at 35%. 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 Continues to apply steroid cream for alleviation of itching and discomfort. Lindy Taylor MD Cardiology - needs p stacy : B P resaonably elevated. Advised routine BP monitoring, dietary sodium restriction. Lindy Taylor MD Cardiology follow up Lindy rowell MD Cardiology follow up :Weight los s advised. Lindy Taylor MD Cardiology follow up :Patient complains of intermittent wheezing. Will prescribe albuterol inhaler. Lindy Taylor MD Cardiology follow up :BP control is satisfactory. Lindy Taylor MD Cardiology follow up :In sinus rhythm. QTC 430. Continues on Dofetilide, Digoxin, and Cardizem. On anticoagulation with Eliquis. Atrial paced at 35%. 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 Continues to apply steroid cream for alleviation of itching and discomfort. Lindy Taylor MD Cardiology follow up :CLinically euvolemic. Will check echo at next visit. Lindy Taylor MD Cardiology:On Abilify. Lindy Taylor MD Cardiology:Not on inhalers. Stab le. Lindy Taylor MD Cardiology:Weight lo ss advised. Lindy Taylor MD Cardiology:BP contro l is satisfactory. Lindy Taylor MD Cardiology:Will chec k echo at next visit to see whether EF has improved. Lindy Taylor MD Cardiology:In sinus rhythm. Continues on Dofetilide, Digoxin, and Cardizem. On anticoagulation with Eliquis. Atrial paced at 35%. 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 Prescribed steroid cream for daily local application. Lindy Taylor MD [facility] :Weight loss advised. She would likely benefit from a sleep study. Marco A Galicia [facility] follow up :Continues to have intermitten anxiety. Futher management as per yourself. Marco A Galicia [facility] follow up :Blood pressure stable.Advised reduced sodium intake and routine monitoring of the blood pressure. We aim for blood pressure less than 130/80. Marco A Galicia [facility] follow up :? related to arrhythmia. Will repeat echo in the coming months. Marco A Galicia [facility] follow up :s/p unsuccessful DAMIAN/CV. She continues to have a high AF burden on device. Continues on Cardizem, Dofetilide, and Digoxin. On Eliquis for long ter OAC. Will check electrolytes and magnesium today. Marco A Galicia Date Name Complete Echo Complete Echo Complete Echo Complete Echo TRIGLYCERIDES Complete Echo MAGNESIUM COMPREHENSIVE METABO LIC PANEL, W/EGFR EKG HISTORY OF PROCEDURES Procedure Date Procedure Name Provider Procedure Notes S tatus Complex e/m visit add on Lindy Taylor MD completed EKG Lindy Taylor MD complet ed EKG Lindy Taylor MD complet ed EKG Lindy Taylor MD complet ed EKG Lindy Taylor MD complet ed EKG Lindy Taylor MD complet ed EKG Lindy Taylor MD complet ed EKG Lindy Taylor MD complet ed EKG Lindy Taylor MD complet ed EKG Lindy Taylor MD complet ed EKG Lindy Taylor MD complet ed "
== END 2024-07-23 12:53 | disposition home or self-care (01) ==
LOC: ANHAUDASC 12:52
PROVIDERS: PCP Physician Assistant Medical; Visit Provider Physician Assistant Medical
DX: H90.0 Conductive hearing loss, bilateral (principal)
CPT/HCPCS: 92557; 92567